=== PATIENT | female | born 1980 | race Caucasian/White ===

== ENCOUNTER 2017-07-16 17:02 | Inpatient (IN) | payer MEDICAID, SELFPAY ==
[2017-07-16 17:18] VITALS: BMI 40.0; BMI 62.6
[2017-07-16 18:11] VITALS: BP 138/91; PULSE 95; RESP 18; TEMP 37; O2SAT 99
[2017-07-16] MEDS: Buprenorphine HCl 2 MG TAB.SUBL SL (18:18)
[2017-07-16] MEDS: Dicyclomine 10 MG Capsule 20 MG PO (18:18)
[2017-07-16] MEDS: Acetaminophen 325 MG Tablet 650 MG PO (18:18)
[2017-07-16] MEDS: chlordiazePOXIDE 25 MG Capsule PO ×2 (18:19→21:03)
[2017-07-16] MEDS: Methocarbamol 750 MG Tablet PO (18:19)
[2017-07-16 18:30] LABS: ALB/GLOB Ratio 0.7 RATIO (0.9-2.4); AST(SGOT) 14 U/L (15-37); Alanine Aminotransfer ALT/SGPT 20 U/L (12-78); Albumin, Serum 2.8 g/dL (3.4-5.0); Alkaline Phosphatase 102 U/L (45-117); Anion Gap 6 (5-15); BUN 11 mg/dL (7-18); Calcium,Total 8.7 mg/dL (8.5-10.1); Chloride 107 mmol/L (98-107); Creatinine, Serum 0.52 mg/dL (0.55-1.02); EST Glomerular Filtration Rate 140 mL/min (>60); Est Glom Filt Rate - Afr Amer 170 mL/min (>60); Estimated Creatinine Clearance 134.58 ml/min; Glucose 120 mg/dL (70-110); Magnesium 1.8 mg/dL (1.6-2.6); Protein, Total 6.8 g/dL (6.4-8.2); Sodium Level 138 mmol/L (136-145)
[2017-07-16 18:32] LABS: Absolute Lymphocyte Count 1.22 X10^3/ul (0.83-4.51); Absolute Neutrophil Count 6.5 X10^3/uL (2.0-7.7); Basophil# 0.03 X10^3/uL; Basophil% 0.4 % (0-1); Eosinophil# 0.03 X10^3/uL; Eosinophils% 0.4 % (0-5); Hematocrit 44.4 % (37-47); Hemoglobin 15.1 g/dl (12.0-15.0); Lymphocyte # 1.22 X10^3/ul (4.0); Lymphocyte % 15.2 % (19-41); Mean Corpuscular Hgb 31.1 pg (27.0-32.0); Mean Corpuscular Volume 91.4 fL (81-99); Mean Platelet Vol. 10.5 fl (6.2-12.0); Monocyte% 2.5 % (0-10); Neutrophil # 6.53 X10^3/uL (2.7-7.7); Neutrophil % 81.4 % (47-70); Platelet Count 272 K/mm3 (150-450); RBC Distribution Width CV 12.7 % (11.6-14.6); RBC Distribution Width SD 42.2 fl (35.1-43.9); Red Blood Count 4.86 M/mm3 (4.2-5.4)
[2017-07-16 18:35] LABS: POSITIVE COUNT NO; POSITIVE DIFFERENTIAL NO; POSITIVE MORPHOLOGY NO
--- NOTE | 2017-07-16 19:08 | PCM.HP.STD ---
Problem List (1) Opioid withdrawal Status: Acute (2) Heroin abuse Status: Chronic (3) Nicotine dependence Status: Chronic (4) Fibromyalgia Status: Chronic (5) Morbid obesity Status: Chronic (6) Peripheral edema Status: Chronic (7) Anxiety, generalized Status: Chronic History of Present Illness Date of Admission: 07/16/17 Chief Complaint: Opiod withdrawal Patient is a 37 years old female with history of heroin abuse, presented to [facility] for rehabilitation, admitted for medical stabilization treatment. She uses heroin by inhalation, about 0.5 gram to 1 gram for past 2 years. Her last use was this morning to just to take the edge off. She is having increasing jitteriness, tearing, abdominal pain, and nausea. She never participated in rehab program in the past. Her also uses heroin. 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 Patient denied of any profound fatigue. HEENT: Unremarkable. Patient denied of any dizziness, chronic headache, blurred vision, double vision, dry mouth, or nasal congestion. CV/respiratory: There is no exertional shortness of breath, chest pain, palpitation, wheezing, cough, claudication, cold feet, or peripheral edema. GI: See HPI. : Patient denied any significant urinary symptoms. Neurology: Unremarkable. There is no history of seizure as an adult. Psychological: See HPI. Endocrine: Unremarkable. Musculoskeletal: Unremarkable. VTE Information - Inpt Only VTE Present on Admission: No VTE Mechan Device Prophylaxis: None VTE Pharm Prophylaxis ordered?: Yes Patient Problems: Active and Suspected Problems Opioid withdrawal (Acute) Objective: In general, patient is a well-nourished and developed adult. She is awake, alert, appears anxious. HEENT: Head is atraumatic, and normocephalic. Pupils are equal, round, and reactive to light and accommodations. Neck is supple. There is no lymphadenopathy, or thyromegaly. Oral mucosa is pink, and moist. There are no lesions. Heart: Auscultation is normal with regular rhythm and rate. There is no extra heart sounds, or murmurs. S1 and S2 are present. Point of maximal impulse is not displaced. Lungs: Lungs are clear to auscultation bilaterally. There is no wheezing, or crackles. Abdomen: Abdomen is obese, non-tender, and non-distended. There is no palpable mass or organomegaly. Normoactive bowel sounds are present. Extremities: There is no cyanosis or clubbing. Peripheral pulses are palpable. There is no edema. Skin: There are no any skin discoloration or lesions. Neurological: CN II - XII are intact. Sensory and motor functions are grossly normal with no obvious deficit. Cerebellar functions are within normal range. Gait was not tested. - Physical Exam Vital Signs Temp Pulse Resp BP Pulse Ox 98.6 F 95 18 138/91 H 99 07/16/17 18:11 07/16/17 18:11 07/16/17 18:11 07/16/17 18:11 07/16/17 18:11 Oxygen Delivery Method Room Air Weight: 376 lb 1.738 oz Body Mass Index (BMI) 62.6 Laboratory Tests Past 24 Hrs 07/16/17 07/16/17 18:06 18:06 WBC 8.0 RBC 4.86 Hgb 15.1 H Hct 44.4 MCV 91.4 MCH 31.1 MCHC 34.0 RDW 12.7 RDW Differential 42.2 Plt Count 272 MPV 10.5 Immature Gran % (Auto) 0.100 Neut % (Auto) 81.4 H Lymph % (Auto) 15.2 L [place] % (Auto) 2.5 Eos % (Auto) 0.4 Baso % (Auto) 0.4 Absolute Neuts (auto) 6.5 Absolute Lymphs (auto) 1.22 Total Counted Not Reportable Sodium 138 Potassium 4.0 Chloride 107 Carbon Dioxide 25.0 Anion Gap 6 BUN 11 Creatinine 0.52 L Estim Creat Clear Calc 134.58 Est GFR (MDRD) Af Amer 170 Est GFR (MDRD) Non-Af 140 BUN/Creatinine Ratio 21.0 H Glucose 120 H Calcium 8.7 Magnesium 1.8 Total Bilirubin 0.40 AST 14 L ALT 20 Alkaline Phosphatase 102 Total Protein 6.8 Albumin 2.8 L Globulin 4.0 Albumin/Globulin Ratio 0.7 L Assessment/Plan Active and Suspected Problems Opioid withdrawal (Acute) Patient is a 37 years old female with history of heroin abuse, presented to [facility] for rehabilitation, admitted for medical stabilization treatment. She uses heroin by inhalation, about 0.5 gram to 1 gram for past 2 years. Her last use was this morning to just to take the edge off. She is having increasing jitteriness, tearing, abdominal pain, and nausea. She never participated in rehab program in the past. Her also uses heroin. #1 Opioid withdrawal. Start medical stabilization treatment with Librium and buprenorphine, along with other protocol medications. #2 Anxiety disorder, generalized. Hold Xanax prn while on Librium. #3 Nicotine dependency. Provide nicotine patch. #4 Peripheral edema. She takes Lasix and K-Dur prn for intermittent edema. She is asymptomatic today. Hold medications. #5 Morbid obesity. BMI 62. VTE prophylaxis: Lovenox SQ. GI prophylaxis: H2 tarsha po. She is full code. Disposition: Per [facility]. Code Visit Inpatient E&M: 69767 Init Hosp L2
--- NOTE | 2017-07-16 19:19 | HP.PCM_ITS ---
Problem List (1) Opioid withdrawal Status: Acute (2) Heroin abuse Status: Chronic (3) Nicotine dependence Status: Chronic (4) Fibromyalgia Status: Chronic (5) Morbid obesity Status: Chronic (6) Peripheral edema Status: Chronic (7) Anxiety, generalized Status: Chronic History of Present Illness Date of Admission: 07/16/17 Chief Complaint: Opiod withdrawal Patient is a 37 years old female with history of heroin abuse, presented to [facility] for rehabilitation, admitted for medical stabilization treatment. She uses heroin by inhalation, about 0.5 gram to 1 gram for past 2 years. Her last use was this morning to ?just to take the edge off?. She is having increasing jitteriness, tearing, abdominal pain, and nausea. She never participated in rehab program in the past. Her also uses heroin. 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 Patient denied of any profound fatigue. HEENT: Unremarkable. Patient denied of any dizziness, chronic headache, blurred vision, double vision, dry mouth, or nasal congestion. CV/respiratory: There is no exertional shortness of breath, chest pain, palpitation, wheezing, cough, claudication, cold feet, or peripheral edema. GI: See HPI. : Patient denied any significant urinary symptoms. Neurology: Unremarkable. There is no history of seizure as an adult. Psychological: See HPI. Endocrine: Unremarkable. Musculoskeletal: Unremarkable. VTE Information - Inpt Only VTE Present on Admission: No VTE Mechan Device Prophylaxis: None VTE Pharm Prophylaxis ordered?: Yes Patient Problems: Active and Suspected Problems Opioid withdrawal (Acute) Objective: In general, patient is a well-nourished and developed adult. She is awake, alert, appears anxious. HEENT: Head is atraumatic, and normocephalic. Pupils are equal, round, and reactive to light and accommodations. Neck is supple. There is no lymphadenopathy, or thyromegaly. Oral mucosa is pink, and moist. There are no lesions. Heart: Auscultation is normal with regular rhythm and rate. There is no extra heart sounds, or murmurs. S1 and S2 are present. Point of maximal impulse is not displaced. Lungs: Lungs are clear to auscultation bilaterally. There is no wheezing, or crackles. Abdomen: Abdomen is obese, non-tender, and non-distended. There is no palpable mass or organomegaly. Normoactive bowel sounds are present. Extremities: There is no cyanosis or clubbing. Peripheral pulses are palpable. There is no edema. Skin: There are no any skin discoloration or lesions. Neurological: CN II - XII are intact. Sensory and motor functions are grossly normal with no obvious deficit. Cerebellar functions are within normal range. Gait was not tested. - Physical Exam Vital Signs Temp Pulse Resp BP Pulse Ox 98.6 F 95 18 138/91 H 99 07/16/17 18:11 07/16/17 18:11 07/16/17 18:11 07/16/17 18:11 07/16/17 18:11 Oxygen Delivery Method Room Air Weight: 376 lb 1.738 oz Body Mass Index (BMI) 62.6 Laboratory Tests Past 24 Hrs 07/16/17 07/16/17 18:06 18:06 WBC 8.0 RBC 4.86 Hgb 15.1 H Hct 44.4 MCV 91.4 MCH 31.1 MCHC 34.0 RDW 12.7 RDW Differential 42.2 Plt Count 272 MPV 10.5 Immature Gran % (Auto) 0.100 Neut % (Auto) 81.4 H Lymph % (Auto) 15.2 L [place] % (Auto) 2.5 Eos % (Auto) 0.4 Baso % (Auto) 0.4 Absolute Neuts (auto) 6.5 Absolute Lymphs (auto) 1.22 Total Counted Not Reportable Sodium 138 Potassium 4.0 Chloride 107 Carbon Dioxide 25.0 Anion Gap 6 BUN 11 Creatinine 0.52 L Estim Creat Clear Calc 134.58 Est GFR (MDRD) Af Amer 170 Est GFR (MDRD) Non-Af 140 BUN/Creatinine Ratio 21.0 H Glucose 120 H Calcium 8.7 Magnesium 1.8 Total Bilirubin 0.40 AST 14 L ALT 20 Alkaline Phosphatase 102 Total Protein 6.8 Albumin 2.8 L Globulin 4.0 Albumin/Globulin Ratio 0.7 L Assessment/Plan Active and Suspected Problems Opioid withdrawal (Acute) Patient is a 37 years old female with history of heroin abuse, presented to [facility] for rehabilitation, admitted for medical stabilization treatment. She uses heroin by inhalation, about 0.5 gram to 1 gram for past 2 years. Her last use was this morning to ?just to take the edge off?. She is having increasing jitteriness, tearing, abdominal pain, and nausea. She never participated in rehab program in the past. Her also uses heroin. #1 Opioid withdrawal. Start medical stabilization treatment with Librium and buprenorphine, along with other protocol medications. #2 Anxiety disorder, generalized. Hold Xanax prn while on Librium. #3 Nicotine dependency. Provide nicotine patch. #4 Peripheral edema. She takes Lasix and K-Dur prn for intermittent edema. She is asymptomatic today. Hold medications. #5 Morbid obesity. BMI 62. VTE prophylaxis: Lovenox SQ. GI prophylaxis: H2 tarsha po. She is full code. Disposition: Per [facility]. Code Visit Inpatient E&M: 78429 Init Hosp L2
[2017-07-16] MEDS: Pramipexole Di-HCl 0.25 MG Tablet PO (20:24)
[2017-07-16] MEDS: cloNIDine HCl 0.1 MG Tablet PO ×2 (20:24→22:36)
[2017-07-16 20:32] VITALS: BP 128/80; PULSE 94; RESP 16; TEMP 36.8; O2SAT 96
[2017-07-16] MEDS: Famotidine 20 MG Tablet PO (21:03)
[2017-07-16] MEDS: QUEtiapine 25 MG Tablet PO (22:36)
[2017-07-17 02:22] VITALS: BP 124/69; PULSE 79; RESP 18; TEMP 36.7; O2SAT 98
[2017-07-17] MEDS: chlordiazePOXIDE 25 MG Capsule PO ×4 (02:24→14:53)
[2017-07-17] MEDS: Buprenorphine HCl 2 MG TAB.SUBL SL ×3 (02:24→17:33)
[2017-07-17] MEDS: Dicyclomine 10 MG Capsule 20 MG PO ×3 (04:42→16:45)
[2017-07-17] MEDS: Methocarbamol 750 MG Tablet PO ×2 (04:42→16:45)
[2017-07-17] MEDS: cloNIDine HCl 0.1 MG Tablet PO ×3 (04:42→16:45)
[2017-07-17 07:14] LABS: Absolute Lymphocyte Count 2.68 X10^3/ul (0.83-4.51); Absolute Neutrophil Count 4.4 X10^3/uL (2.0-7.7); Basophil# 0.02 X10^3/uL; Basophil% 0.3 % (0-1); Eosinophil# 0.24 X10^3/uL; Eosinophils% 3.1 % (0-5); Hematocrit 42.4 % (37-47); Hemoglobin 14.1 g/dl (12.0-15.0); Lymphocyte # 2.68 X10^3/ul (4.0); Lymphocyte % 34.1 % (19-41); Mean Corp Hgb Conc 33.3 g/gl (32-36); Mean Corpuscular Hgb 30.7 pg (27.0-32.0); Mean Corpuscular Volume 92.4 fL (81-99); Mean Platelet Vol. 10.5 fl (6.2-12.0); Monocyte# 0.46 X10^3/uL; Monocyte% 5.9 % (0-10); Neutrophil # 4.44 X10^3/uL (2.7-7.7); Neutrophil % 56.5 % (47-70); Platelet Count 232 K/mm3 (150-450); RBC Distribution Width CV 12.9 % (11.6-14.6); Red Blood Count 4.59 M/mm3 (4.2-5.4); White Blood Count 7.9 K/mm3 (4.4-11.0)
[2017-07-17 07:23] LABS: POSITIVE COUNT NO; POSITIVE DIFFERENTIAL NO; POSITIVE MORPHOLOGY NO
[2017-07-17 07:38] LABS: Anion Gap 9 (5-15); BUN 11 mg/dL (7-18); BUN/Creat Ratio 16.5 RATIO (10-20); Calcium,Total 8.3 mg/dL (8.5-10.1); Chloride 107 mmol/L (98-107); Creatinine, Serum 0.66 mg/dL (0.55-1.02); EST Glomerular Filtration Rate 107 mL/min (>60); Est Glom Filt Rate - Afr Amer 129 mL/min (>60); Estimated Creatinine Clearance 106.04 ml/min; Glucose 147 mg/dL (70-110); Potassium 3.3 mmol/L (3.5-5.1); Sodium Level 141 mmol/L (136-145)
[2017-07-17] MEDS: Famotidine 20 MG Tablet PO ×2 (10:30→21:32)
[2017-07-17] MEDS: Enoxaparin 40 MG/0.4 ML Syringe SC (10:30)
[2017-07-17 10:39] VITALS: RESP 20
[2017-07-17 10:44] VITALS: BP 112/75; PULSE 79; RESP 20; TEMP 36.8; O2SAT 95
--- NOTE | 2017-07-17 12:17 | PCM.PROGNOTE ---
Patient Problems: Active and Suspected Problems Opioid withdrawal (Acute) Subjective: Patient is a 37-year-old female with a history of heroin use, marijuana use, fibromyalgia, super morbid obesity, nicotine dependence and generalized anxiety who presented to the [facility] office requesting inpatient admission for medical stabilization for opiate withdrawal. She uses 0.5-1 g of heroin daily for 2 years. She last used on the morning of admission. She has never been in a rehab program in the past. Her is also a heroin addict. Her medication reconciliation says that she takes Xanax 4 mg 3 times a day as needed. She also takes gabapentin 300 mg 3 times daily as needed. She was started on a Librium taper as well as Buprenorphine taper. CBC was unremarkable and so was the BMP. Glucose has been elevated. LFTs were unremarkable. Vital signs are stable today and she is 95-98% on room air. Does not use needles, ever. She snorts the heroin. She has had anxiety in the past and was given Xanax by her PCP who she no longer sees. Has never had withdrawal from benzo' s and she only uses PRN, not daily. She is adamant that she wants to quit any addictive drugs. Her is also using heroin and is to be admitted to the program on Thursday. she is prepared to leave him if he does not quit using heroin. She has 2 dtr's who are and she wants to get clean. Has never seen a psychotherapist. Has never been on anything but Xanax for anx/dep. She is agreeable to starting Effexor which treats Anxiety, depression, chronic pain and also promotes wt loss. She plans on getting Vivitrol to help her healing process. - Physical Exam General: Alert, Oriented x3, Cooperative, No apparent distress, Well developed, Well nourished HEENT: Atraumatic, PERRLA, EOMI, Normocephalic Oral: Moist Mucosa, No Gingival or Mucosal Lesions/ Ulcerations Neck: Supple, No Nuchal Rigidity, Trachea Midline Lungs: Clear to auscultation, Normal air movement Cardiovascular: Regular rate, Regular Rhythm, Normal S1, Normal S2, No murmurs, No Gallop Abdomen: Soft, Non Tender, Non-Distended, Obese Extremities: No clubbing, No cyanosis Skin: No rashes, No breakdown Neurological: Cranial nerves II-XII grossly intact, Neuro grossly intact Psych/Mental Status: Normal Affect, Appropriate Vital Signs Temp Pulse Resp BP Pulse Ox 98.2 F 79 20 H 112/75 95 07/17/17 10:44 07/17/17 10:44 07/17/17 10:44 07/17/17 10:44 07/17/17 10:44 Oxygen Delivery Method Room Air Weight: 376 lb 1.738 oz Body Mass Index (BMI) 62.6 Laboratory Tests Past 24 Hrs 07/16/17 07/16/17 07/17/17 18:06 18:06 06:40 WBC 8.0 7.9 RBC 4.86 4.59 Hgb 15.1 H 14.1 Hct 44.4 42.4 MCV 91.4 92.4 MCH 31.1 30.7 MCHC 34.0 33.3 RDW 12.7 12.9 RDW Differential 42.2 43.0 Plt Count 272 232 MPV 10.5 10.5 Immature Gran % (Auto) 0.100 0.100 Neut % (Auto) 81.4 H 56.5 Lymph % (Auto) 15.2 L 34.1 [place] % (Auto) 2.5 5.9 Eos % (Auto) 0.4 3.1 Baso % (Auto) 0.4 0.3 Absolute Neuts (auto) 6.5 4.4 Absolute Lymphs (auto) 1.22 2.68 Total Counted Not Reportable Not Reportable Sodium 138 Potassium 4.0 Chloride 107 Carbon Dioxide 25.0 Anion Gap 6 BUN 11 Creatinine 0.52 L Estim Creat Clear Calc 134.58 Est GFR (MDRD) Af Amer 170 Est GFR (MDRD) Non-Af 140 BUN/Creatinine Ratio 21.0 H Glucose 120 H Calcium 8.7 Magnesium 1.8 Total Bilirubin 0.40 AST 14 L ALT 20 Alkaline Phosphatase 102 Total Protein 6.8 Albumin 2.8 L Globulin 4.0 Albumin/Globulin Ratio 0.7 L 07/17/17 06:40 WBC RBC Hgb Hct MCV MCH MCHC RDW RDW Differential Plt Count MPV Immature Gran % (Auto) Neut % (Auto) Lymph % (Auto) [place] % (Auto) Eos % (Auto) Baso % (Auto) Absolute Neuts (auto) Absolute Lymphs (auto) Total Counted Sodium 141 Potassium 3.3 L Chloride 107 Carbon Dioxide 25.0 Anion Gap 9 BUN 11 Creatinine 0.66 Estim Creat Clear Calc 106.04 Est GFR (MDRD) Af Amer 129 Est GFR (MDRD) Non-Af 107 BUN/Creatinine Ratio 16.5 Glucose 147 H Calcium 8.3 L Magnesium Total Bilirubin AST ALT Alkaline Phosphatase Total Protein Albumin Globulin Albumin/Globulin Ratio Assessment/Plan Active and Suspected Problems Opioid withdrawal (Acute) Impressions 1. acute opiate withdrawal 2. heroin use and PRN Xanax 3. morbid obesity 4. Fibromyalgia 5. tobacco dependence continue Suboxone Continue the Librium taper. Do not plan on any Xanax at [place] since she is only using PRN and she is not a daily user Start Effexor XR 75 mg daily today continue [facility] protocol for acute opiate withdrawal Code Visit Inpatient E&M: [id number] Subs Hosp L2
[2017-07-17 13:32] LABS: Hemoglobin A1c 5.2 % (4.2-6.3)
[2017-07-17 14:30] VITALS: BP 100/57; PULSE 76; RESP 18; TEMP 36.8
[2017-07-17 16:49] VITALS: BP 121/81; PULSE 69; RESP 18; TEMP 36.8
[2017-07-17] MEDS: Pramipexole Di-HCl 0.25 MG Tablet PO (21:34)
[2017-07-17] MEDS: QUEtiapine 25 MG Tablet PO (21:38)
[2017-07-17 21:39] VITALS: BP 128/78; PULSE 61; RESP 18; TEMP 36.4
[2017-07-18] MEDS: Methocarbamol 750 MG Tablet PO ×3 (00:07→17:17)
[2017-07-18] MEDS: Dicyclomine 10 MG Capsule 20 MG PO ×2 (00:07→10:42)
[2017-07-18] MEDS: chlordiazePOXIDE 25 MG Capsule PO ×2 (00:07→17:17)
[2017-07-18 02:00] VITALS: BP 105/47; PULSE 61; RESP 18; TEMP 36.9
[2017-07-18] MEDS: Buprenorphine HCl 2 MG TAB.SUBL SL ×3 (02:12→21:05)
[2017-07-18 07:08] LABS: HEPATITIS B SURFACE AG Negative (Negative); Hepatitis A AB, Total Negative (Negative); Hepatitis A IgM Antibody Negative (Negative); Hepatitis B Core AB IgM Negative (Negative); Hepatitis B Core Ab Total Negative (Negative); Hepatitis C Ab 0.1 s/co ratio (0.0-0.9)
[2017-07-18 07:49] VITALS: PULSE 88; O2SAT 95
[2017-07-18 07:52] LABS: Absolute Lymphocyte Count 2.83 X10^3/ul (0.83-4.51); Absolute Neutrophil Count 3.5 X10^3/uL (2.0-7.7); Basophil# 0.04 X10^3/uL; Basophil% 0.6 % (0-1); Eosinophil# 0.29 X10^3/uL; Hematocrit 42.9 % (37-47); Lymphocyte # 2.83 X10^3/ul (4.0); Lymphocyte % 39.5 % (19-41); Mean Corp Hgb Conc 32.6 g/gl (32-36); Mean Corpuscular Hgb 30.6 pg (27.0-32.0); Mean Corpuscular Volume 93.7 fL (81-99); Mean Platelet Vol. 10.8 fl (6.2-12.0); Monocyte# 0.55 X10^3/uL; Monocyte% 7.7 % (0-10); Neutrophil # 3.46 X10^3/uL (2.7-7.7); Neutrophil % 48.2 % (47-70); Platelet Count 224 K/mm3 (150-450); RBC Distribution Width SD 44.4 fl (35.1-43.9); Red Blood Count 4.58 M/mm3 (4.2-5.4); White Blood Count 7.2 K/mm3 (4.4-11.0)
[2017-07-18 07:53] LABS: POSITIVE COUNT NO; POSITIVE DIFFERENTIAL NO; POSITIVE MORPHOLOGY NO
[2017-07-18 08:26] LABS: Anion Gap 6 (5-15); BUN 12 mg/dL (7-18); BUN/Creat Ratio 20.9 RATIO (10-20); Calcium,Total 8.3 mg/dL (8.5-10.1); Chloride 110 mmol/L (98-107); Creatinine, Serum 0.58 mg/dL (0.55-1.02); EST Glomerular Filtration Rate 126 mL/min (>60); Est Glom Filt Rate - Afr Amer 153 mL/min (>60); Estimated Creatinine Clearance 120.66 ml/min; Glucose 94 mg/dL (70-110); Potassium 3.8 mmol/L (3.5-5.1); Sodium Level 143 mmol/L (136-145)
[2017-07-18 08:52] LABS: HIV 1/0/2 SCREEN 4TH GEN Non Reactive (Non Reactive); Hep B Surface Antibodies Non Reactive (.)
--- NOTE | 2017-07-18 09:32 | PCM.PROGNOTE ---
Patient Problems: Active and Suspected Problems Opioid withdrawal (Acute) Subjective: Remains afebrile. Vital signs are stable. She is 95% saturated on room air today. Hepatitis panel is negative and the HIV is nonreactive. No complaints other than feeling tired. Denies nausea, diarrhea, abdominal pain, vomiting, restless leg. - Physical Exam General: Oriented x3, Cooperative, - - sleepy HEENT: PERRLA, EOMI Oral: Moist Mucosa Lungs: Clear to auscultation, Diminished Cardiovascular: Regular rate, Regular Rhythm, Normal S1, Normal S2, No Gallop Abdomen: Bowel Sounds Present, Soft, Non Tender, Non-Distended, Obese Extremities: No cyanosis, No Calf Tenderness Skin: No rashes Vital Signs Temp Pulse Resp BP Pulse Ox 98.5 F 88 18 105/47 L 95 07/18/17 02:00 07/18/17 07:49 07/18/17 02:00 07/18/17 02:00 07/18/17 07:49 Oxygen Flow Rate 20 Oxygen Delivery Method Room Air Weight: 376 lb 1.738 oz Body Mass Index (BMI) 62.6 Intake and Output for Last 24 Hours 07/16/17 07/17/17 07/18/17 23:59 23:59 23:59 Intake Total 500 / 500 666 / 666 Balance 500 / 500 666 / 666 Laboratory Tests Past 24 Hrs 07/17/17 07/17/17 07/18/17 06:40 12:40 07:12 WBC 7.2 RBC 4.58 Hgb 14.0 Hct 42.9 MCV 93.7 MCH 30.6 MCHC 32.6 RDW 13.0 RDW Differential 44.4 H Plt Count 224 MPV 10.8 Immature Gran % (Auto) 0.000 Neut % (Auto) 48.2 Lymph % (Auto) 39.5 [place] % (Auto) 7.7 Eos % (Auto) 4.0 Baso % (Auto) 0.6 Absolute Neuts (auto) 3.5 Absolute Lymphs (auto) 2.83 Total Counted Not Reportable Sodium Potassium Chloride Carbon Dioxide Anion Gap BUN Creatinine Estim Creat Clear Calc Est GFR (MDRD) Af Amer Est GFR (MDRD) Non-Af BUN/Creatinine Ratio Glucose Hemoglobin A1c 5.2 Calcium Hepatitis A IgM Ab Negative Hepatitis A Ab Total Negative Hep Bs Antigen Negative Hep B Core Total Ab Negative Hep B Core IgM Ab Negative Hepatitis C Ab Confirm 0.1 Hepatitis C Comment Comment HIV 1&2 Ag/Ab, 4th Gen Non Reactive 07/18/17 07:12 WBC RBC Hgb Hct MCV MCH MCHC RDW RDW Differential Plt Count MPV Immature Gran % (Auto) Neut % (Auto) Lymph % (Auto) [place] % (Auto) Eos % (Auto) Baso % (Auto) Absolute Neuts (auto) Absolute Lymphs (auto) Total Counted Sodium 143 Potassium 3.8 Chloride 110 H Carbon Dioxide 27.0 Anion Gap 6 BUN 12 Creatinine 0.58 Estim Creat Clear Calc 120.66 Est GFR (MDRD) Af Amer 153 Est GFR (MDRD) Non-Af 126 BUN/Creatinine Ratio 20.9 H Glucose 94 Hemoglobin A1c Calcium 8.3 L Hepatitis A IgM Ab Hepatitis A Ab Total Hep Bs Antigen Hep B Core Total Ab Hep B Core IgM Ab Hepatitis C Ab Confirm Hepatitis C Comment HIV 1&2 Ag/Ab, 4th Gen Assessment/Plan Active and Suspected Problems Opioid withdrawal (Acute) Impressions 1. acute opiate withdrawal 2. heroin use and PRN Xanax 3. morbid obesity 4. Fibromyalgia 5. tobacco dependence continue Suboxone Continue the Librium taper. await the results of the overnight trending pulse ox Continue Effexor Code Visit Inpatient E&M: [id number] Subs Hosp L2
[2017-07-18 09:34] VITALS: BP 117/65; PULSE 64; RESP 18; TEMP 36.5; O2SAT 98
[2017-07-18] MEDS: QUEtiapine 25 MG Tablet PO ×2 (10:42→21:05)
[2017-07-18] MEDS: Famotidine 20 MG Tablet PO ×2 (10:42→21:04)
[2017-07-18] MEDS: Acetaminophen 325 MG Tablet 650 MG PO ×2 (10:42→17:17)
[2017-07-18] MEDS: Enoxaparin 40 MG/0.4 ML Syringe SC (10:43)
[2017-07-18] MEDS: cloNIDine HCl 0.1 MG Tablet PO ×3 (10:43→21:04)
[2017-07-18 17:11] VITALS: BP 139/88; PULSE 72; RESP 16; TEMP 37.2
[2017-07-18 20:55] VITALS: BP 118/79; PULSE 66; RESP 18; TEMP 36.5; O2SAT 97
[2017-07-18] MEDS: Pramipexole Di-HCl 0.25 MG Tablet PO (21:04)
[2017-07-18 21:06] VITALS: PULSE 66; RESP 18; O2SAT 97
[2017-07-19 07:01] VITALS: BP 140/91; PULSE 60; RESP 18; TEMP 36.2
[2017-07-19] MEDS: Methocarbamol 750 MG Tablet PO (07:05)
[2017-07-19] MEDS: Dicyclomine 10 MG Capsule 20 MG PO ×2 (07:05→13:43)
[2017-07-19] MEDS: cloNIDine HCl 0.1 MG Tablet PO (07:05)
--- NOTE | 2017-07-19 09:17 | PCM.PROGNOTE ---
Patient Problems: Active and Suspected Problems Opioid withdrawal (Acute) Subjective: No complaints today. She is afebrile with stable vital signs. Occasional increase in BP but comes down with Clonidine Planning on Vivitrol at [place] Her plans on being admitted on Thursday to the [facility] The last dose of the suboxone is not due until 10 PM tonight - Physical Exam General: Alert, Oriented x3, Cooperative, No apparent distress Oral: Moist Mucosa Lungs: Clear to auscultation, Normal air movement Cardiovascular: Regular rate, Regular Rhythm, Normal S1, Normal S2, No murmurs, No Gallop Abdomen: Bowel Sounds Present, Soft, Non Tender, Non-Distended Skin: No rashes Psych/Mental Status: Normal Affect, Appropriate Vital Signs Temp Pulse Resp BP Pulse Ox 97.1 F L 60 18 140/91 H 97 07/19/17 07:01 07/19/17 07:01 07/19/17 07:01 07/19/17 07:01 07/18/17 21:06 Oxygen Flow Rate 20 Oxygen Delivery Method Room Air Weight: 376 lb 1.738 oz Body Mass Index (BMI) 62.6 Intake and Output for Last 24 Hours 07/17/17 07/18/17 07/19/17 23:59 23:59 23:59 Intake Total 500 / 500 666 / 666 Balance 500 / 500 666 / 666 Assessment/Plan Active and Suspected Problems Opioid withdrawal (Acute) Impressions 1. acute opiate withdrawal 2. heroin use and PRN Xanax 3. morbid obesity 4. Fibromyalgia 5. tobacco dependence Hold DC until Tomorrow morning since she is not getting her last dose of Suboxone until 10 PM tonight is coming in to be admitted to the [facility] on 07/20 No Gabapentin at [place] because of the abuse potential and synergy with Heroin increasing a high started on Effexor for anxiety/depression, chronic pain of fibromyalgia and to promote weight loss Will give a Nicotine patch at [place] SMoking cessation conversation held again today with the patient Code Visit Inpatient E&M: [id number] Subs Hosp L1
--- NOTE | 2017-07-19 09:20 | PN_ITS ---
Patient Problems: Active and Suspected Problems Opioid withdrawal (Acute) Subjective: No complaints today. She is afebrile with stable vital signs. Occasional increase in BP but comes down with Clonidine Planning on Vivitrol at [place] Her plans on being admitted on Thursday to the [facility] The last dose of the suboxone is not due until 10 PM tonight - Physical Exam General: Alert, Oriented x3, Cooperative, No apparent distress Oral: Moist Mucosa Lungs: Clear to auscultation, Normal air movement Cardiovascular: Regular rate, Regular Rhythm, Normal S1, Normal S2, No murmurs, No Gallop Abdomen: Bowel Sounds Present, Soft, Non Tender, Non-Distended Skin: No rashes Psych/Mental Status: Normal Affect, Appropriate Vital Signs Temp Pulse Resp BP Pulse Ox 97.1 F L 60 18 140/91 H 97 07/19/17 07:01 07/19/17 07:01 07/19/17 07:01 07/19/17 07:01 07/18/17 21:06 Oxygen Flow Rate 20 Oxygen Delivery Method Room Air Weight: 376 lb 1.738 oz Body Mass Index (BMI) 62.6 Intake and Output for Last 24 Hours 07/17/17 07/18/17 07/19/17 23:59 23:59 23:59 Intake Total 500 / 500 666 / 666 Balance 500 / 500 666 / 666 Assessment/Plan Active and Suspected Problems Opioid withdrawal (Acute) Impressions 1. acute opiate withdrawal 2. heroin use and PRN Xanax 3. morbid obesity 4. Fibromyalgia 5. tobacco dependence Hold DC until Tomorrow morning since she is not getting her last dose of Suboxone until 10 PM tonight is coming in to be admitted to the [facility] on 07/20 No Gabapentin at [place] because of the abuse potential and synergy with Heroin increasing a high started on Effexor for anxiety/depression, chronic pain of fibromyalgia and to promote weight loss Will give a Nicotine patch at [place] SMoking cessation conversation held again today with the patient Code Visit Inpatient E&M: 24931 Subs Hosp L1
--- NOTE | 2017-07-19 09:25 | PCM.DC ---
- Discharge Diagnoses Current Active Problems: Current Active and Chronic Problems Heroin abuse (Chronic) Nicotine dependence (Chronic) Fibromyalgia (Chronic) Opioid withdrawal (Acute) Morbid obesity (Chronic) Peripheral edema (Chronic) Anxiety, generalized (Chronic) You will use the following diet at home:: No restrictions Your food should be the consistency of: Regular Your liquids should be the consistency of: Regular/Thin Discharge Activity: Return to Normal Activity Call your doctor if you observe: Fever of 101 or Higher, Inability to urinate, Inability to have a bowel movement, Shortness of breath, Dizziness, Chest pain Additional Instructions: 1. I am giving you a prescription for a nicotine patch......sometimes it is difficult to quit more than 1 addiction at a time. It is up to you whether you want to get it filled or not. 2. I am also giving you a prescription for Venlafaxine, also called Effexor. Effexor has multiple uses. It treats bothe anxiety and depression, it is associated with weight loss and it works to help for chronic pain. I do not think it is a good idea for you to take Gabapentin. Gabapentin is a frequently abused drug. Many heroin addicts get prescriptions for Gabapentin because when it is used with Heroin it gives you a better high. I would try and stick with the Effexor. I started you on 75mg a day. If you have new side effects in the next 2 weeks I would increase the dose to 150 mg daily which is a more effective dose. 3. I think you have made a good decision to get help to get off Heroin and I think Vivitrol is also a good decision. It is very difficult to quit any addiction......it is more difficult if you are around others abusing drugs. Good luck to you. I believe you are serious about this and you can do this......it is always good to have resources available to help you....it takes a strong person. Allergies/Adverse Reactions: Allergies No Known Allergies Allergy (Verified 07/16/17 17:19) Medications to take at Discharge Furosemide [Lasix] 40 mg PO DAILY 07/16/17 Potassium PO TID 07/16/17 Nicotine [Nicoderm] 14 mg TRANSDERM. DAILY #28 patch 07/19/17 Venlafaxine XR [Effexor Xr] 75 mg PO DAILY #30 cap 07/19/17 The following prescriptions were given: Nicotine [Nicoderm] 14 mg TRANSDERM. DAILY #28 patch Venlafaxine XR [Effexor Xr] 75 mg PO DAILY #30 cap Primary Care Physician: Care Physician,No Primary [Primary Care Provider] - Please Follow Up With: Randall Crane MD When: 2 weeks Proposed Discharge Date: 07/20/17
--- NOTE | 2017-07-19 09:54 | DS.PCM_ITS ---
Discharge Date and Diagnosis - Problem List Patient Problems: Active and Suspected Problems Opioid withdrawal (Acute) Date of Admission: 07/16/17 Date of Discharge: 07/20/17 - Primary Discharge Diagnosis Active and Suspected Problems Opioid withdrawal (Acute) suspected MAXIMILIANO - Secondary Discharge Diagnosis Chronic Problems Heroin abuse (Chronic) - snorts Nicotine dependence (Chronic) Fibromyalgia (Chronic) Morbid obesity (Chronic) Peripheral edema (Chronic) - on Lasix Anxiety/depression Hospital Course and Treatment Imaging Results: Laboratory Tests 07/16/17 07/16/17 07/17/17 18:06 18:06 06:40 WBC 8.0 7.9 RBC 4.86 4.59 Hgb 15.1 H 14.1 Hct 44.4 42.4 MCV 91.4 92.4 MCH 31.1 30.7 MCHC 34.0 33.3 RDW 12.7 12.9 RDW Differential 42.2 43.0 Plt Count 272 232 MPV 10.5 10.5 Immature Gran % (Auto) 0.100 0.100 Neut % (Auto) 81.4 H 56.5 Lymph % (Auto) 15.2 L 34.1 [place] % (Auto) 2.5 5.9 Eos % (Auto) 0.4 3.1 Baso % (Auto) 0.4 0.3 Absolute Neuts (auto) 6.5 4.4 Absolute Lymphs (auto) 1.22 2.68 Total Counted Not Reportable Not Reportable Sodium 138 Potassium 4.0 Chloride 107 Carbon Dioxide 25.0 Anion Gap 6 BUN 11 Creatinine 0.52 L Estim Creat Clear Calc 134.58 Est GFR (MDRD) Af Amer 170 Est GFR (MDRD) Non-Af 140 BUN/Creatinine Ratio 21.0 H Glucose 120 H Hemoglobin A1c Calcium 8.7 Magnesium 1.8 Total Bilirubin 0.40 AST 14 L ALT 20 Alkaline Phosphatase 102 Total Protein 6.8 Albumin 2.8 L Globulin 4.0 Albumin/Globulin Ratio 0.7 L Hepatitis A IgM Ab Hepatitis A Ab Total Hep Bs Antigen Hep B Core Total Ab Hep B Core IgM Ab Hepatitis C Ab Confirm Hepatitis C Comment HIV 1&2 Ag/Ab, 4th Gen 07/17/17 07/17/17 07/17/17 06:40 06:40 12:40 WBC RBC Hgb Hct MCV MCH MCHC RDW RDW Differential Plt Count MPV Immature Gran % (Auto) Neut % (Auto) Lymph % (Auto) [place] % (Auto) Eos % (Auto) Baso % (Auto) Absolute Neuts (auto) Absolute Lymphs (auto) Total Counted Sodium 141 Potassium 3.3 L Chloride 107 Carbon Dioxide 25.0 Anion Gap 9 BUN 11 Creatinine 0.66 Estim Creat Clear Calc 106.04 Est GFR (MDRD) Af Amer 129 Est GFR (MDRD) Non-Af 107 BUN/Creatinine Ratio 16.5 Glucose 147 H Hemoglobin A1c 5.2 Calcium 8.3 L Magnesium Total Bilirubin AST ALT Alkaline Phosphatase Total Protein Albumin Globulin Albumin/Globulin Ratio Hepatitis A IgM Ab Negative Hepatitis A Ab Total Negative Hep Bs Antigen Negative Hep B Core Total Ab Negative Hep B Core IgM Ab Negative Hepatitis C Ab Confirm 0.1 Hepatitis C Comment Comment HIV 1&2 Ag/Ab, 4th Gen Non Reactive 07/18/17 07/18/17 07:12 07:12 WBC 7.2 RBC 4.58 Hgb 14.0 Hct 42.9 MCV 93.7 MCH 30.6 MCHC 32.6 RDW 13.0 RDW Differential 44.4 H Plt Count 224 MPV 10.8 Immature Gran % (Auto) 0.000 Neut % (Auto) 48.2 Lymph % (Auto) 39.5 [place] % (Auto) 7.7 Eos % (Auto) 4.0 Baso % (Auto) 0.6 Absolute Neuts (auto) 3.5 Absolute Lymphs (auto) 2.83 Total Counted Not Reportable Sodium 143 Potassium 3.8 Chloride 110 H Carbon Dioxide 27.0 Anion Gap 6 BUN 12 Creatinine 0.58 Estim Creat Clear Calc 120.66 Est GFR (MDRD) Af Amer 153 Est GFR (MDRD) Non-Af 126 BUN/Creatinine Ratio 20.9 H Glucose 94 Hemoglobin A1c Calcium 8.3 L Magnesium Total Bilirubin AST ALT Alkaline Phosphatase Total Protein Albumin Globulin Albumin/Globulin Ratio Hepatitis A IgM Ab Hepatitis A Ab Total Hep Bs Antigen Hep B Core Total Ab Hep B Core IgM Ab Hepatitis C Ab Confirm Hepatitis C Comment HIV 1&2 Ag/Ab, 4th Gen [facility] from [facility] Operations: None Procedures: - - overnight trending pulse ox Summary of Care Provided: Patient is a 37-year-old female with a history of heroin use, marijuana use , fibromyalgia, morbid obesity, nicotine dependence and generalized anxiety who presented to the [facility] office requesting inpatient admission for medical stabilization for opiate withdrawal. She uses 0.5-1 g of heroin daily for 2 years. She last used on the morning of admission. She has never been in a rehab program in the past. Her is also a heroin addict. She does not use needles. She snorts heroin. She has had anxiety in the past and was given Xanax by her PCP who she no longer sees. She has never had withdrawal from benzo' s and she only uses PRN, not daily. She is adamant that she wants to quit any addictive drugs. Her is also using heroin and is to be admitted to the [facility] program on 07/20/17. She is prepared to leave him if he does not quit using heroin. She has 2 dtr's who are and she wants to get clean. She has never seen a psychotherapist. She has never been on anything but Xanax for anx/dep. She was agreeable to starting Effexor which treats Anxiety, depression, chronic pain due to fibromyalgia and also promotes wt loss. She plans on getting Vivitrol to help her healing process. She had a overnight trending pulse ox while in the hospital and she had 54 desaturation events. I would obtain an OP sleep study in the future. Untreated sleep apnea is frequently associated with illicit drug use. She does not have a PCP and I recommended Dr. Crane to follow up on suspected MAXIMILIANO and tx of anxiety and depression. She was discharged with a Prescription for Effexor XR 75 mg and instructed to take 75 mg daily. If she is tolerating this dose in 2 weeks I would increase to 150 mg daily which is a more effective dose. She was also give a prescription for a Nicotine patch 14 mg, #28. She received smoking cessation counselling while in the hospital. Significant lab included a negative hepatitis panel and a negative HIV. Glucose was mildly increased but a HGBA1C was 5.2. Weight loss was advised. This note was generated with [employer] dictation software. It may contain incorrect words, spelling, and punctuation that were not noted in checking the note before signing. Discharge Activity: Return to Normal Activity Call your doctor if you observe: Fever of 101 or Higher, Inability to urinate, Inability to have a bowel movement, Shortness of breath, Dizziness, Chest pain Home Medications: Medications to take at Discharge Furosemide [Lasix] 40 mg PO DAILY 07/16/17 Potassium PO TID 07/16/17 Nicotine [Nicoderm] 14 mg TRANSDERM. DAILY #28 patch 07/19/17 Venlafaxine XR [Effexor Xr] 75 mg PO DAILY #30 cap 07/19/17 Following Prescrptions Were Given to Patient: Nicotine [Nicoderm] 14 mg TRANSDERM. DAILY #28 patch Venlafaxine XR [Effexor Xr] 75 mg PO DAILY #30 cap Primary Care Physician: Care Physician,No Primary [Primary Care Provider] - Please Follow Up With: Randall Crane MD When: 2 weeks Disposition: Home Minutes spent on discharge:: 38 Patient Condition:: Good Meaningful Use Info Meaningful Use Diagnoses (Choose all that apply): None applicable Code Visit Inpatient E&M: 24546 Disch Hosp
[2017-07-19 10:00] VITALS: BP 118/76; PULSE 54; RESP 16; TEMP 36.6; O2SAT 97
[2017-07-19] MEDS: Famotidine 20 MG Tablet PO (10:09)
[2017-07-19] MEDS: Enoxaparin 40 MG/0.4 ML Syringe SC (10:09)
[2017-07-19] MEDS: Buprenorphine HCl 2 MG TAB.SUBL SL (10:13)
[2017-07-19 14:00] VITALS: BP 148/86; PULSE 86; RESP 16; TEMP 37.2
--- NOTE | 2017-07-19 14:43 | NURSING ---
pt called nurses phone and asking why cant go home reasoning explained to pt reasoning why is staying. pt ok with rationale for now. stated, ill have to call my mother in law then so she can bring my in [place] then. denies any other needs a this time
[2017-07-19 17:00] VITALS: BP 148/82; PULSE 86; RESP 16; TEMP 37.2; O2SAT 98
== END 2017-07-19 17:15 | disposition home or self-care (01) | DRG 435 ==
PROVIDERS: Admitting Provider Hospitalist; Visit Provider Internal Medicine
DX: F11.23 Opioid dependence with withdrawal (principal); E66.01 Morbid (severe) obesity due to excess calories; M79.7 Fibromyalgia; F41.1 Generalized anxiety disorder; F17.200 Nicotine dependence, unspecified, uncomplicated; Z68.44 Body mass index [BMI] 60.0-69.9, adult; F32.9 Major depressive disorder, single episode, unspecified; R60.9 Edema, unspecified
CPT/HCPCS: 36415; 80048; 80053; 83036; 83735; 85025; 86703; 86704; 86705; 86706; 86708; 86709; 86803; 87340; 94762; 97802